=== PATIENT | female | born 1990 ===

== ENCOUNTER 2021-11-24 22:40 | Emergency (ER) | payer MEDICAID ==
[~2021-11-24] VITALS: Ht 152.4 cm; Wt 50.0 kg
[2021-11-24 22:44] VITALS: BP 132/91
== END 2021-11-24 23:18 | disposition left against medical advice (07) ==
LOC: ER 22:40
DX: S09.8XXA Other specified injuries of head, initial encounter (principal); Z53.21 Procedure and treatment not carried out due to patient leaving prior to being seen by health care provider; W22.8XXA Striking against or struck by other objects, initial encounter; Y93.89 Activity, other specified; Y92.89 Other specified places as the place of occurrence of the external cause; Y99.8 Other external cause status
CPT/HCPCS: 70450